=== PATIENT | female | born 1950 | race Caucasian/White ===

== ENCOUNTER 2018-01-08 11:29 | Emergency (ER) | payer OTHER | END 2018-01-08 14:52 | disposition home or self-care (01) | LOC: FTE 11:29 | DX: J20.9 Acute bronchitis, unspecified (principal); I10 Essential (primary) hypertension; E11.9 Type 2 diabetes mellitus without complications | CPT/HCPCS: 99284 ==

== ENCOUNTER 2019-08-20 14:14 | Emergency (ER) | payer OTHER ==
[2019-08-20] MEDS: KETOROLAC 30 MG INJ IM (15:26)
== END 2019-08-20 17:01 | disposition home or self-care (01) ==
LOC: FTE 14:14
DX: S49.91XA Unspecified injury of right shoulder and upper arm, initial encounter (principal); I10 Essential (primary) hypertension; E11.9 Type 2 diabetes mellitus without complications; W18.30XA Fall on same level, unspecified, initial encounter; Y92.9 Unspecified place or not applicable
CPT/HCPCS: 73030; 73030-RT; 96372; 99284-25